=== PATIENT | male | born 1930 | race Caucasian/White ===

== ENCOUNTER 2017-12-06 16:13 | Inpatient (IN) | payer OTHER ==
[~2017-12-06] VITALS: Ht 170.2 cm; Wt 79.4 kg
--- NOTE | ~2017-12-06 | HC ---
[facility] [place] [address] CONSULTATION Name: HECTOR ARIZMENDI Room #: 237-P [facility] IN .R.#: [id number] Admission: 12/06/17 Attend Phys: Michelle Richter MD Discharge: Date of : 32 Report #: [id number] THIS REPORT FOR: //name// CC: Michelle Richter REASON FOR CONSULTATION: Recurrent VT/VF. HISTORY OF PRESENT ILLNESS: The patient is an 87-year-old patient with a history of coronary artery disease status post bypass as well as AFib, peripheral vascular disease, hypertension, hyperlipidemia, prior bypass surgery of his leg who was admitted here after a prolonged hospitalization at [facility] for congestive heart failure and pneumonia. He was admitted here with progressive fatigue and weakness, nausea, vomiting, diarrhea. While on the fourth floor, the patient had a cardiac arrest, was transferred to the ICU. Started on IV amiodarone and had been on Levophed. He had a repeat echo showing decreased LV systolic function, no significant valvular abnormalities. Over the past 24 hours, he has had multiple runs of ventricular tachycardia, ventricular flutter and ventricular fibrillation that have been successfully terminated with external shocks. He is on continuous IV amiodarone and Levophed 18 mcg. He is currently intubated. REVIEW OF SYSTEMS: Unable to obtain. PAST MEDICAL HISTORY: As above. FAMILY HISTORY: Significant for cardiomyopathy. SOCIAL HISTORY: He quit smoking. ALLERGIES: None. MEDICATIONS: Have been reviewed and include IV amiodarone, Zosyn, Levophed and sedatives. PHYSICAL EXAMINATION: VITAL SIGNS: Temperature is 37.1, pulse 93, respiration 16, blood pressure 103/57, sats 100%. GENERAL: The patient is intubated and sedated having just been shocked prior to me walking in the room. My initial evaluation of him was around 9:00 a.m. CARDIOVASCULAR: Regular rate and rhythm. LUNGS: Clear anteriorly. ABDOMEN: Soft, nontender and nondistended. EXTREMITIES: There is no clubbing, cyanosis, edema. NEUROLOGIC: Cranial nerves unable to assess. LABORATORY DATA: White count 19.7, hemoglobin 12, platelets 107. Blood gas pH is 7.2, pCO2 46, pO2 82. Coags: INR is 1.1. Chemistries: Sodium is 139, [facility] [address] [place] [address] CONSULTATION Name: HECTOR ARIZMENDI Room #: 237-P [facility]#: [id number] Admission: 12/06/17 Attend Phys: Michelle Richter MD Discharge: Date of : 32 Report #: [id number] potassium 3.6, chloride 109, bicarbonate 20, BUN 44, creatinine 2.3, glucose 137. A 12-lead EKG performed right after his cardioversion shows an accelerated junctional rhythm with a right bundle branch block. There are no ischemic changes. ASSESSMENT AND PLAN: 1. Refractory ventricular tachycardia and ventricular fibrillation. 2. Acute systolic heart failure. 3. Ischemic cardiomyopathy. 4. Coronary artery disease. 5. Respiratory failure. 6. Acute on chronic renal insufficiency. 7. Possible sepsis. 8. Leukocytosis. In summary, the patient is an 87-year-old with history of coronary artery disease with recurrent VT, V-fib despite amiodarone therapy. The etiology of his arrhythmias is not entirely clear, but I would suspect there is some underlying ischemia versus an advanced cardiomyopathy as the cause. It also could be due to his advanced age. At this time, I have recommended continuing with high dose IV amiodarone to suppress his ventricular arrhythmias and continue with a defibrillation as needed. I discussed with the family that the patient is very sick and that there will likely be a poor outcome at this point. I discussed options including aggressive management as we are currently doing versus de-escalation of care, which could include no more I cardioversions for VF as well as consideration of comfort measures. At this point, all 3 sons would like to continue with aggressive management of the patient. We will therefore continue to follow. I recommend continuing amiodarone and optimizing electrolytes. Given his tenuous hemodynamics and arrhythmias, I do not think he is a candidate for cardiac catheterization. <ELECTRONICALLY SIGNED> By: Mario Alberto Juárez MD 12/16/17 1407 1428 1854 Mario Alberto Juárez MD /nt
--- NOTE | ~2017-12-06 | EKG ---
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 : 1930 Requested By: Kevin Ruano Order Number: [id number] MD: Kevin Ruano Measurements Intervals [place] Rate: 74 P: -73 [place]: 270 QRS: -118 QRSD: 189 T: 108 QT: 515 QTc: 572 Interpretive Statements Sinus or ectopic atrial rhythm Prolonged [place] interval Right bundle branch block Compared to ECG 12/07/2017 06:51:56 Sinus rhythm has replaced atrial flutter Electronically Signed On 12-08-2017 10:38:38 CDT by Kevin Ruano [email or web address] <ELECTRONICALLY SIGNED> By: Kevin Ruano MD, [facility] 12/08/17 1038 0649 0649 Kevin Ruano MD, [facility] /EPI
--- NOTE | ~2017-12-06 | EKG ---
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: kristina : 1930 Requested By: Keanu Goldberg Order Number: [id number] MD: Kevin Ruano Measurements Intervals [place] Rate: 99 P: 213 CT: 187 QRS: -137 QRSD: 187 T: 52 QT: 479 QTc: 615 Interpretive Statements Sinus or ectopic atrial rhythm Right bundle branch block Compared to ECG 12/08/2017 15:53:11 No significant change was found Electronically Signed On 12-09-2017 13:26:28 CDT by Kevin Ruano [email or web address] <ELECTRONICALLY SIGNED> By: Kevin Ruano MD, [facility] 12/09/17 1326 22 22 Kevin Ruano MD, [facility] /EPI
--- NOTE | ~2017-12-06 | 2DMMODE ---
[facility] [address] [place] [address] 2 D/M-MODE ECHOCARDIOGRAM Name: HECTOR ARIZMENDI Room #: 237-P [facility] IN ..#: [id number] Admission: 12/06/17 Attend Phys: Michelle Richter MD Discharge: Date of : 32 Date of Service: 12/07/17 1029 Report #: [id number] THIS REPORT FOR: //name// APPROVED REPORT Study performed: 12/07/2017 08:36:33 EXAM: Comprehensive 2D, Doppler, and color-flow Echocardiogram Patient Location: Bedside Room #: Count includes the [facility] Status: routine BSA: 1.96 HR: 77 bpm BP: 165/132 mmHg Rhythm: NSR/Irregular Other Information Study Quality: Good Technically limited study due to inability to position patient, patient on ventilator. Indications Post Code 2D Dimensions RVDd: 35.38 mm LVEF(%): 57.17 (>50%) IVSd: 13.34 (7-11mm) LVOT Diam: 22.35 (18-24mm) LVDd: 43.56 mm PWd: 12.80 (7-11mm) Ascending Ao: 34.82 (22-36mm) LVDs: 30.58 (25-40mm) Aortic Root: 38.13 mm De León's LVEF: 57.17 % Volumes Left Atrial Volume (Systole) Single Plane 4CH: 83.58 mL Single Plane 2CH: 119.03 mL LA ESV Index: 55.00 mL/m2 Aortic Valve AoV Peak Jose.: 1.43 m/s AO Peak Gr.: 8.22 mmHg LVOT Max P.21 mmHg LVOT Max V: 0.74 m/s MARIA R Vmax: 2.03 cm2 Mitral Valve [facility] [employer] [place] [address] 2 D/M-MODE ECHOCARDIOGRAM Name: HECTOR ARIZMENDI Room #: 237-P [facility] IN ..#: [id number] Admission: 12/06/17 Attend Phys: Michelle Richter MD Discharge: Date of : 32 Date of Service: 12/07/17 1029 Report #: [id number] E/A Ratio: 2.7 MV Decel. Time: 181.73 ms MV E Max Jose.: 0.91 m/s MV A Jose.: 0.34 m/s MV PHT: 52.70 ms IVRT: 83.04 ms Pulmonary Valve PV Peak Jose.: 0.95 m/s PV Peak Gr.: 3.62 mmHg Pulmonary Vein P Vein S: 0.61 m/s P Vein A: 0.31 m/s P Vein D: 0.24 m/s P Vein A Dur.: 64.6 msec P Vein S/D Ratio: 2.54 Tricuspid Valve TR Peak Jose.: 2.91 m/s RAP Estimate: 15.00 mmHg TR Peak Gr.: 33.90 mmHg PA Pressure: 49.00 mmHg Left Ventricle The left ventricle is normal size. Mild concentric left ventricular hypertrophy. The left ventricular systolic function was mildly depressed. In the presence of a tachycardia, LV function was severely reduced. LVEF 45%. The diastolic function is abnormal. Right Ventricle The right ventricle is normal size. Right ventricle is mildly hypokinetic. Atria Left atrium is severely dilated. Right atrium is dilated. Aortic Valve The aortic valve is mildly calcified, trileaflet Trace aortic regurgitation. There is no aortic valvular stenosis. Mitral Valve Mild mitral annular calcification Mild mitral regurgitation. No evidence of mitral valve stenosis. Tricuspid Valve The tricuspid valve is normal in structure. Mild tricuspid regurgitation. Estimated PAP 50 mmHg. Pulmonic Valve [address] [address] 2 D/M-MODE ECHOCARDIOGRAM Name: HECTOR ARIZMENDI Room #: 237-P [facility] IN [facility]#: [id number] Admission: 12/06/17 Attend Phys: Michelle Richter MD Discharge: Date of : 32 Date of Service: 12/07/17 1029 Report #: [id number] The pulmonary valve is normal in structure. Trace pulmonic regurgitation. Great Vessels Aortic root is borderline dilated. The ascending aorta is normal in size. IVC is dilated and collapses <50% with inspiration. Pericardium There is no pericardial effusion. <Conclusion> The left ventricular systolic function was mildly depressed. In the presence of a tachycardia, LV function was severely reduced. LVEF 45%. Both atria are severely dilated. The aortic valve is mildly calcified, trileaflet. Trace aortic regurgitation, no stenosis. Mild mitral annular calcification. Mild-moderate mitral regurgitation. Mild tricuspid regurgitation. Estimated pulmonary artery pressure of 50 mmHg. There is no pericardial effusion. <ELECTRONICALLY SIGNED> By: Kevin Ruano MD, FACC 12/07/17 1029 1029 1029 Kevin Ruano MD, FACC /INF
--- NOTE | ~2017-12-06 | HC ---
[facility] [place] [address] CONSULTATION Name: HECTOR ARIZMENDI Room #: 202-P [facility] IN .R.#: [id number] Admission: 12/06/17 Attend Phys: Michelle Richter MD Discharge: 12/23/17 Date of : 32 Report #: [id number] THIS REPORT FOR: //name// CC: Michelle Richter DATE OF SERVICE: 12/19/2017 HISTORY OF PRESENT ILLNESS: The patient is an 87-year-old white male who was originally admitted on 12/06/2017 with vomiting, diarrhea. He was noted to have an unresponsive episode, had recurrent V-tach, code blue on 12/08/2017. He was intubated, mechanically ventilated, shocked, underwent CPR. He was treated in the Intensive Care Unit. He was noted to have acute renal insufficiency. He was initially unresponsive, seen by Neurology, diagnosed with encephalopathy, both hypoxic as well as metabolic. Noted to have C. diff. He does have a colorectal wall thickening on CT and the plan is for potential colonoscopy at a later date when further medically stabilized. He has been transferred [facility], is much more alert, although with significant cognitive deficits and we are seeing him in rehabilitation medicine consultation. PAST MEDICAL HISTORY: Includes cardiomyopathy, hypertension, atrial fibrillation. He has had a prior common bile duct stone. History of severe obstructive sleep apnea. Also includes a recent hospitalization at [facility] for a community-acquired pneumonia and had been on 1 liter nasal prong O2 since that hospitalization based on nocturnal oximetry. He does have the noted severe obstructive sleep apnea per sleep study and had until recently refused CPAP. PAST SURGICAL HISTORY: Includes a prior right total knee replacement. HABITS: Former smoker, alcohol, special occasions. ALLERGIES: No known drug allergies. SOCIAL HISTORY: The patient and had recently moved from their house in with their daughter and son-in-law. This is a house with 2 steps in and there is a stair glide there. The son and [id number] both work during the day and the patient is there with his . He premorbidly did not utilize gait aids, although he would use the stair glide with his history of arthritis. His uses a cane on occasion. REVIEW OF SYSTEMS: Did not offer any current complaints of chest pain, shortness of breath, or abdominal discomfort. Complains of being overall weak. PHYSICAL EXAMINATION: GENERAL: This is a pleasant 87-year-old white male in no obvious distress. VITAL SIGNS: Last recorded temperature 98.2, pulse 69, respirations 20, [place] [address] CONSULTATION Name: HECTOR ARIZMENDI Room #: 202-P [facility] IN M.R.#: [id number] Admission: 12/06/17 Attend Phys: Michelle Richter MD Discharge: 12/23/17 Date of : 32 Report #: [id number] pressure 107/47. NEUROLOGIC: He has decreased short term memory. Follows basic commands without difficulty, is certainly pleasant and engaging. Facies appeared symmetric. EXTREMITIES: He has functional range of motion of both upper extremities. Strength is grade 3+ to 4-/5. Lower extremities, no focal calf swelling, functional range of motion with strength grade 3+ to 4-/5. DTRs are trace to 1. He is max assist with sit to stand. He does have a posterior lean. Speech therapy notes moderate cognitive deficits. In OT, he stood from a recliner with max assist. Bathing at bedside was noted to be mod assist. ASSESSMENT: An 87-year-old white male previously independent living in the community, admitted with the following problem list: 1. Hypoxic and metabolic encephalopathy. 2. Recurrent ventricular tachycardia with cardiac arrest. 3. Acute respiratory failure, which has resolved, still on nasal prong O2; however, at 2 liters. 4. Acute kidney injury, which is improved. 5. Sepsis. 6. Viral gastroenteritis. 7. Hypotension. 8. Aspiration pneumonia for which he was treated with IV Rocephin. 9. Clostridium difficile colitis. 10. Chronic kidney disease, stage III. 11. Circumferential rectal wall thickening on CT, consider colonoscopy at a later date. 12. Chronic intermittent atrial fibrillation. 13. Coronary artery disease with remote coronary artery bypass graft, peripheral vascular disease with history of a left lower extremity revascularization. 14. Past history of deep vein thrombosis. 15. Severe obstructive sleep apnea. 16. Elevated liver function tests, did have a common bile duct stone last year. PLAN: The patient would be a candidate for an acute in-hospital inpatient rehabilitation stay. This would allow the multiple procurement consultant physicians to continue following with him while he undergoes rehabilitation therapies to maximize his functional independence, so he can return back to the home setting. He appears motivated and insurance precertification issues will be checked on for an acute in-hospital inpatient rehabilitation stay. <ELECTRONICALLY SIGNED> By: Alfa Patel MD 12/28/17 1504 1226 1259 Alfa Patel MD /[facility]
--- NOTE | ~2017-12-06 | EEG ---
[facility] [place] [address] ELECTROENCEPHALOGRAM Name: HECTOR ARIZMENDI Room #: 202-P [facility] IN M.R.#: [id number] Admission: 12/06/17 Attend Phys: Michelle Richter MD Discharge: Date of : 32 Report #: [id number] THIS REPORT FOR: //name// CC: Michelle Richter DATE OF SERVICE: 12/07/2017 This patient is being evaluated for altered mental status. EEG was done by placing the electrodes by standard 10-20 system of electrode placement. Both referential and sequential montages were used for recording. Background activity in this patient's EEG goes up to about 7 Hz and 20 microvolt. Photic stimulation is unremarkable. IMPRESSION: This patient's EEG is only moderately abnormal at the moment, which would be consistent with the diagnosis of encephalopathy; however, the finding is nonspecific and can occur in multiple other etiology. The patient will require serial EEG to further prognosticate him. Thank you very much for this referral. <ELECTRONICALLY SIGNED> By: Clifton Chiu MD 12/20/17 1650 193 44 Clifton Chiu MD /nt
--- NOTE | ~2017-12-06 | EKG ---
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 Director: DAYDAY : 1930 Requested By: Kevin Ruano Order Number: [id number] MD: Kevin Ruano Measurements Intervals [place] Rate: 122 P: [place]: QRS: 207 QRSD: 188 T: 48 QT: 418 QTc: 596 Interpretive Statements Possible atrial fibrillation Right bundle-branch block Compared to ECG 12/08/2017 15:53:11 Possible Atrial fibrillation has replaced sinus rhythm Electronically Signed On 12-09-2017 13:31:00 CDT by Kevin Ruano [email or web address] <ELECTRONICALLY SIGNED> By: Kevin Ruano MD, [facility] 12/09/17 1331 7 7 Kevin Ruano MD, [facility] /EPI
--- NOTE | ~2017-12-06 | EKG ---
[address] [address] ELECTROCARDIOGRAM REPORT Name: HECTOR ARIZMENDI Room #: 237-[facility]#: [id number] Admission: 12/06/17 Attend Phys: Michelle Richter MD Discharge: Date of : 32 Report #: [id number] THIS REPORT FOR: //name// [facility] Test Date: 2017-12-07 Test Time: 06:51:56 Pat Name: HECTOR ARIZMENDI Department: Room: 237 P Gender: M Catalyst Supervisor: DAYDAY : 1930 Requested By: Michelle Richter Order Number: [id number] MD: Mario Alberto Juárez Measurements Intervals [place] Rate: 106 P: [place]: QRS: -121 QRSD: 202 T: 63 QT: 472 QTc: 627 Interpretive Statements Atrial flutter RBBB Compared to ECG 05/02/2003 06:32:25 Electronically Signed On 12-07-2017 8:03:09 CDT by Mario Alberto Juárez [email or web address] <ELECTRONICALLY SIGNED> By: Mario Alberto Juárez MD 12/07/17 0803 0 Mario Alberto Juárez MD /ATILIO
--- NOTE | ~2017-12-06 | EKG ---
[address] [address] ELECTROCARDIOGRAM REPORT Name: HECTOR ARIZMENDI Room #: 237-P [facility]#: [id number] Admission: 12/06/17 Attend Phys: Michelle Richter MD Discharge: Date of : 32 Report #: [id number] THIS REPORT FOR: //name// [facility] ED Test Date: 2017-12-06 Test Time: 17:07:32 Pat Name: HECTOR ARIZMENDI Department: Room: [facility] Gender: M Agricultural Education Professor: ANA MARÍA : 1930 Requested By: Juan R Barakat Order Number: [id number] MD: Mario Alberto Juárez Measurements Intervals [place] Rate: 102 P: [place]: QRS: -162 QRSD: 183 T: 26 QT: 438 QTc: 571 Interpretive Statements Atrial flutter RBBB and LPFB Compared to ECG 05/02/2003 06:32:25 Left posterior fascicular block now present Right bundle-branch block now present Sinus rhythm no longer present Myocardial infarct finding no longer present Electronically Signed On 12-07-2017 7:56:14 CDT by Mario Alberto Juárez [email or web address] <ELECTRONICALLY SIGNED> By: Mario Alberto Juárez MD 12/07/17 0756 170 170 Mario Alberto Juárez MD /EPI
--- NOTE | ~2017-12-06 | EKG ---
[address] [address] ELECTROCARDIOGRAM REPORT Name: HECTOR ARIZMENDI Room #: 202-P ADM IN M.R.#: [id number] Admission: 12/06/17 Attend Phys: Michelle Richter MD Discharge: Date of : 32 Report #: [id number] THIS REPORT FOR: //name// [facility] Test Date: 2017-12-17 Test Time: 10:30:52 Pat Name: HECTOR ARIZMENDI Department: Room: 202 P Gender: M Machine Inker: SARAH : 1930 Requested By: Mario Alberto Juárez Order Number: [id number] MD: Mario Alberto Juárez Measurements Intervals [place] Rate: 84 P: CT: QRS: -172 QRSD: 188 T: 60 QT: 467 QTc: 553 Interpretive Statements Atrial fibrillation Right bundle branch block Compared to ECG 12/09/2017 08:38:18 No significant changes Electronically Signed On 12-17-2017 12:21:41 CDT by Mario Alberto Juárez [email or web address] <ELECTRONICALLY SIGNED> By: Mario Alberto Juárez MD 12/17/17 1221 1030 1030 Mario Alberto Juárez MD /ATILIO
--- NOTE | ~2017-12-06 | EKG ---
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 : 1930 Requested By: Michelle Richter Order Number: [id number] MD: Mario Alberto Juárez Measurements Intervals [place] Rate: 106 P: [place]: QRS: -126 QRSD: 202 T: 64 QT: 482 QTc: 641 Interpretive Statements Atrial flutter Right bundle branch block Baseline wander in lead(s) II,aVR Compared to ECG 12/06/2017 17:07:32 Electronically Signed On 12-07-2017 8:02:49 CDT by Mario Alberto Juárez [email or web address] <ELECTRONICALLY SIGNED> By: Mario lAberto Juárez MD 12/07/17 0802 0651 0651 Mario Alberto Juárez MD /[facility]
--- NOTE | ~2017-12-06 | HC ---
[facility] [place] [address] CONSULTATION Name: HECTOR ARIZMENDI Room #: 237-P [facility] IN .R.#: [id number] Admission: 12/06/17 Attend Phys: Michelle Richter MD Discharge: Date of : 32 Report #: [id number] THIS REPORT FOR: //name// CC: Michelle Richter MD PRIMARY CARE PHYSICIAN: Dr. Michelle Richter. REASON FOR CONSULTATION: Cardiac arrest. HISTORY OF PRESENT ILLNESS: The patient is an 87-year-old white male who was admitted on 12/06 with dehydration. He had complaints of vomiting and diarrhea. Overnight, the patient was found to be in ventricular tachycardia and became unresponsive. The patient was resuscitated and transferred to ICU. A pulmonary consultation was requested. The patient has known coronary artery disease. He has also been known to have severe NIA several years ago. He is followed by Dr. Green. According to the sons, he has not been tolerant to the use of CPAP. He has been advised to sleep with a sleep on the side. Son notes, the patient has had problems with daytime fatigue and sleepiness chronically. The patient was hospitalized a few weeks ago at [facility] for pneumonia. He was doing fairly well until yesterday when he was seen in Dr. Richter's office where he was felt to be fatigued. He was admitted for dehydration. The patient had trouble with vomiting and diarrhea for several hours. He was admitted to telemetry. In the middle of night, the patient was found to be tachycardic and became unresponsive. Code blue was called. CPR was given. He was defibrillated, intubated. While in ICU, patient again developed ventricular tachycardia. The code blue was again called. Presently he has stabilized. Cardiology has been consulted. His vital signs are stable. He is not responsive at this time, but on sedation. PAST MEDICAL HISTORY: Notable for coronary artery disease with coronary bypass surgery several years ago; hypertension; ischemic cardiomyopathy; apparent severe NIA, intolerant to use of CPAP; osteoarthritis; atrial fibrillation. PAST SURGICAL HISTORY: As mentioned above including tonsillectomy, herniorrhaphy x 3, right knee arthroscopic surgery. ALLERGIES: None to medications. HOME MEDICATIONS: List reviewed. This includes Coumadin, alendronate, Coreg, [address] [address] CONSULTATION Name: HECTOR ARIZMENDI Room #: 237-P [facility] IN ..#: [id number] Admission: 12/06/17 Attend Phys: Michelle Richter MD Discharge: Date of : 32 Report #: [id number] Flonase, mirabegron, Ditropan, Zocor, Lasix, amiodarone, aspirin, Claritin. FAMILY HISTORY: Noncontributory. SOCIAL HISTORY: The patient is a lifetime nonsmoker. He drinks occasionally. He is . REVIEW OF SYSTEMS: Deferred as the patient is intubated. PHYSICAL EXAMINATION: GENERAL: He is unresponsive at this time. VITAL SIGNS: Temperature is 97.6 degrees Fahrenheit, pulse is 84, respiratory rate 17, blood pressure 105/52 mmHg, saturation 97%. Overnight blood pressure has been as low as 64 mmHg systolic. HEENT: Normocephalic and atraumatic. He is orally intubated. NECK: Supple, without lymphadenopathy or thyromegaly. CHEST: Breath sounds are clear with no rales or wheezes. CARDIOVASCULAR: Normal S1, S2. There are no murmurs or gallops. There is no JVD, no carotid bruit. Pulses are 2+/4+ bilaterally. ABDOMEN: Soft, nontender, no organomegaly or masses felt. GENITOURINARY: Deferred. RECTAL: Deferred. EXTREMITIES: No edema, cyanosis or clubbing. NEUROLOGIC: Deferred to Neurology. LABORATORY DATA: A chest x-ray shows small lung volumes, ET tube is 2 cm above the luba. Cardiomegaly is present. Otherwise, no obvious infiltrates or effusion seen. Echocardiogram performed earlier today shows pulmonary pressure around 50, yetw-oq-kjrwzzzc mitral regurgitation, trace aortic regurgitation, both atria about severely dilated, ejection fraction 45%, LV function is severely reduced. Lactic acid 5.2. Troponin less than 0.04. CT abdomen and pelvis performed on admission shows small bilateral pleural effusion, mild bibasilar atelectasis, possible diverticulitis, circumferential thickening of the wall of the rectum. Sodium 145, potassium 3.9, chloride 112, CO2 22, BUN is 37, creatinine 1.9. WBC 13,600; no bandemia; hemoglobin 15.1; platelets are normal. Albumin 2.7. Arterial blood gas revealed pH 7.30, pCO2 of 33, pO2 77 and FiO2 100%. IMPRESSION AND PLAN: 1. Witnessed cardiac arrest in this 87-year-old white male who was found to be in ventricular fibrillation. He was coded twice. 2. Coronary artery disease with ischemic cardiomyopathy, ejection fraction 45%. 3. Mild valvular heart disease with vchr-lv-tcdmuycz mitral regurgitation. 4. Acute hypoxic respiratory failure due to above. Gaseous exchange is stable, though A-a gradient is increased. This should stabilize over time. Chest x-ray again is unremarkable. Pulmonary embolus is felt to be unlikely given the [facility] [address] [place] [address] CONSULTATION Name: HECTOR ARIZMENDI Room #: 237-P [facility] IN [facility]#: [id number] Admission: 12/06/17 Attend Phys: Michelle Richter MD Discharge: Date of : 32 Report #: [id number] patient is on anticoagulation on admission. 5. Acute kidney injury with creatinine of 1.2 with development of metabolic acidosis due to cardiac arrest. 6. Leukocytosis, likely reactive due to cardiac arrest. Doubt infectious process at this time. 7. Moderately severe protein calorie malnutrition with albumin of 2.7. 8. 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 9. History of obstructive sleep apnea, felt to be severe, intolerant to the use of CPAP. These may have been the etiology for his cardiac dysrhythmias. 10. Recent nausea, vomiting, possible gastroenteritis, on chronic anticoagulation due to history of atrial fibrillation/flutter. RECOMMENDATION: We will continue mechanical ventilation, wean O2 for saturation 90%. Follow up chest x-ray. We will also need to monitor metabolic acidosis along with renal failure closely. Urine output has been good so far. If acidosis worsens, he may benefit from bicarbonate therapy. We will need to monitor neurologic status closely. He is currently undergoing EEG monitoring. Treatment of sleep apnea will need to be addressed, pending recovery from his current event. Thank you for this consultation. <ELECTRONICALLY SIGNED> By: Pantera Yoon MD 12/07/17 1608 1230 1442 MD francine Haq
--- NOTE | ~2017-12-06 | HC ---
[facility] [place] [address] CONSULTATION Name: HECTOR ARIZMENDI Room #: 202-P [facility] IN M.R.#: [id number] Admission: 12/06/17 Attend Phys: Michelle Richter MD Discharge: Date of : 32 Report #: [id number] THIS REPORT FOR: //name// CC: Michelle Richter REASON FOR CONSULTATION: Acute kidney injury. HISTORY OF PRESENT ILLNESS: The patient is not able to provide me with the history. He is currently intubated. He is an 87-year-old who presented with flu-like symptoms initially back on 12/06/2017. He reported to shortness of breath, fatigue, nausea, diarrhea. He was admitted for further evaluation and management based on his symptoms. He is known to have coronary artery disease, status post CABG about 15 years ago. He was recently hospitalized at [facility] for similar symptoms. He has numerous medical problems including cardiomyopathy, AFib, hypertension. On presentation, his creatinine was around 2.2. Unfortunately, his condition deteriorated and he has had multiple cardiac arrests on the with V-tach and pulseless electrical activity. He required some pressors and was hypotensive. Cardiology is following. Because of the worsening in the creatinine I am being asked to evaluate his acute kidney injury. PAST MEDICAL HISTORY: Numerous and includes the followin. Hypertension. 2. Cardiomyopathy. 3. Coronary artery disease, status post coronary artery bypass graft. 4. Severe obstructive sleep apnea. 5. Atrial fibrillation. PAST SURGICAL HISTORY: 1. Tonsillectomy. 2. Coronary artery bypass graft. 3. Herniorrhaphy. ALLERGIES: No known drug allergies. SOCIAL HISTORY: Lifetime nonsmoker. No drug or alcohol abuse. He is . HOME MEDICATIONS: Include warfarin, amiodarone, carvedilol, aspirin, furosemide. REVIEW OF SYSTEMS: Unobtainable given the patient's current condition and intubation status. PHYSICAL EXAMINATION: GENERAL: The patient is currently intubated. VITAL SIGNS: Blood pressure is 115/64, pulse rate is 81. HEAD AND NECK: ET tube present. [facility] [address] [place] [address] CONSULTATION Name: HECTOR ARIZMENDI Room #: 202-P [facility] IN M.R.#: [id number] Admission: 12/06/17 Attend Phys: Michelle Richter MD Discharge: Date of : 32 Report #: [id number] CHEST: Very limited air entry bilaterally. CARDIOVASCULAR: Distant with no rub detected. ABDOMEN: Soft, nontender. LOWER EXTREMITIES: No edema. LABORATORY DATA: Reviewed. Most recent blood gas revealed a pH of 7.2. White blood cell count 19,000, platelets 99. BUN is 57, creatinine is 3.3, potassium is 4.1. Chest x-ray reviewed, he does have mild right-sided basal infiltrate. ASSESSMENT, IMPRESSION AND PLAN: 1. Acute kidney injury. 2. Chronic kidney disease. 2. Recurrent ventricular fibrillation. 3. Status post cardiopulmonary arrest. 4. Aspiration pneumonitis. 5. History of coronary artery disease. This is a rather grim prognosis. He has very significant acidosis. He is not making urine. Discussed with his son and . Given the fact that he has had at least 4-5 cardiopulmonary arrest events in the last 24 hours, I am leaning towards palliative and comfort care. I will try high dose Lasix with him, his acute kidney injury is well explained by the repeated episodes of hypoperfusion he had with his cardiopulmonary arrest. He does have an evidence of chronic kidney disease. Primary team is addressing his possible infection. Cardiology is following for his cardiac issues. Discussed with his son at bedside. He seemed very receptive of palliative and comfort care. At this point, I will continue to evaluate. If he responds to Lasix, we will place on a scheduled dose furosemide. Otherwise, we should pursue palliative and comfort care. <ELECTRONICALLY SIGNED> By: Ashu Michaels MD 12/21/17 1926 [id number] Ashu Michaels MD /nt
--- NOTE | ~2017-12-06 | HC ---
[facility] [place] [address] CONSULTATION Name: HECTOR ARIZMENDI Room #: 202-P [facility] IN .R.#: [id number] Admission: 12/06/17 Attend Phys: Michelle Richter MD Discharge: Date of : 32 Report #: [id number] THIS REPORT FOR: //name// CC: Michelle Richter DATE OF SERVICE: 12/07/2017 HISTORY OF PRESENT ILLNESS: This is an 87-year-old male patient who is not able to provide any history at all. None of the family member is available, but we will try to contact them. I reviewed this patient's records and looks like this patient had code blue called twice. He was admitted with flu-like symptoms, but since then this patient had 2 code blue events. It looks like he had some vomiting and diarrhea and subsequently had the code blue. REVIEW OF SYSTEMS: Indicate he was recently hospitalized to [facility]. He was having some fatigue, some pleural effusion, he apparently has a history of sleep apnea, he mainly is managed staying himself with sleeping on the side rather than CPAP. Records indicate he has a history of hernia repair, right knee arthroscopy, hypertension, cardiomyopathy, heart burn, AFib. This was his relevant 14-point review of systems. PAST MEDICAL HISTORY: Positive for what looks like dehydration. FAMILY HISTORY: Unremarkable. SOCIAL HISTORY: He used to smoke and he drinks alcohol only on special occasions. The patient is on propofol, so neurological examination is difficult. He is barely responsive where he has minor response to the painful stimuli. His pupil does appear to be reactive, but very sluggishly. No other response could be obtained. He is intubated, he is on vent. He is a reasonably well-developed individual. His blood pressure is 93/59, respiration is 17, and pulse is 97. LABORATORY DATA: Indicate a white count of 13.6, platelet is 130. GFR is 34. He is stable from a cardiac perspective now, he is intubated and is on vent. IMPRESSION: Cardiac arrest. We will evaluate further to look for hypoxic encephalopathy in this patient. I do not believe this patient is stable enough to do any imaging study like CAT scan at the moment. We will get it done when he stabilized the next day or so. In the meantime, we will get an EEG done to see how it looks. It will serve as a baseline and then we will compare with other EEGs over a period of [place] [address] CONSULTATION Name: HECTOR ARIZMENDI Room #: 202-P [facility] IN ..#: [id number] Admission: 12/06/17 Attend Phys: Michelle Richter MD Discharge: Date of : 32 Report #: [id number] Thank you very much for this referral. We will follow this patient along with you. <ELECTRONICALLY SIGNED> By: Clifton Chiu MD 12/20/17 1648 0907 1145 MD francine Trotter
--- NOTE | ~2017-12-06 | 2DMMODE ---
[facility] [address] 2 D/M-MODE ECHOCARDIOGRAM Name: HECTOR ARIZMENDI Room #: 237-P [facility] IN ..#: [id number] Admission: 12/06/17 Attend Phys: Michelle Richter MD Discharge: Date of : 32 Date of Service: 12/10/17 1212 Report #: [id number] THIS REPORT FOR: //name// APPROVED REPORT Study performed: 12/10/2017 08:38:45 EXAM: Limited 2D, Doppler, and color-flow Echocardiogram Patient Location: ICU Room #: [facility] Status: on-call BSA: 1.86 HR: 93 bpm BP: 115/63 mmHg Other Information Study Quality: Good/patient on vent in ICU. Indications Arrhythmia. Status post cardiac arrest. Hx: CABG, AFIB, CM (Complete echo done 12/07/17) 2D Dimensions LVEF(%): 37.07 (>50%) IVSd: 10.62 (7-11mm) LVDd: 57.36 mm PWd: 10.14 (7-11mm) LVDs: 46.96 (25-40mm) De León's LVEF: 37.07 % Aortic Valve AoV Peak Jose.: 1.14 m/s AO Peak Gr.: 5.19 mmHg Tricuspid Valve TR Peak Jose.: 2.92 m/s RAP Estimate: 10.00 mmHg TR Peak Gr.: 34.03 mmHg PA Pressure: 44.00 mmHg Left Ventricle Left ventricle is at the upper limits of normal. Left ventricular systolic function is severely decreased. LVEF is 25-30%. Right Ventricle Right ventricle is dilated. Right ventricle is severely hypokinetic. [facility] [address] [place] [address] 2 D/M-MODE ECHOCARDIOGRAM Name: HECTOR ARIZMENDI Room #: 237-P [facility] IN [facility]#: [id number] Admission: 12/06/17 Attend Phys: Michelle Richter MD Discharge: Date of : 32 Date of Service: 12/10/17 1212 Report #: [id number] Atria Left atrium is severely dilated. Right atrium is severely dilated. Aortic Valve The Aortic valve is sclerotic. Trace aortic regurgitation. There is no aortic valvular stenosis. Mitral Valve Mitral valve leaflets are thickened. Mild mitral annular calcification. Moderate mitral regurgitation. Tricuspid Valve The tricuspid valve is normal in structure. Mild to moderate tricuspid regurgitation. Estimated PAP is 45mmHg. Great Vessels IVC is dilated and collapses <50% with inspiration. Pericardium There is no pericardial effusion. <Conclusion> Left ventricle is at the upper limits of normal. Left ventricular systolic function is severely decreased. LVEF is 25-30%. Right ventricle is dilated. Right ventricle is severely hypokinetic. Left atrium is severely dilated. Right atrium is severely dilated. The Aortic valve is sclerotic. Trace aortic regurgitation. There is no aortic valvular stenosis. Mitral valve leaflets are thickened. Mild mitral annular calcification. Moderate mitral regurgitation. Mild to moderate tricuspid regurgitation. Estimated PAP is 45mmHg. IVC is dilated and collapses <50% with inspiration. There is no pericardial effusion. <ELECTRONICALLY SIGNED> By: Erwin Curry MD, FACC 12/10/17 121 11 11 Erwin Curry MD, FACC /INF
--- NOTE | ~2017-12-06 | EKG ---
[address] [place] [address] ELECTROCARDIOGRAM REPORT Name: HECTOR ARIZMENDI Room #: 237-P ADM IN M.R.#: [id number] Admission: 12/06/17 Attend Phys: Michelle Richter MD Discharge: Date of : 32 Report #: [id number] THIS REPORT FOR: //name// [facility] Test Date: 2017-12-08 Test Time: 22:20:18 Pat Name: HECTOR ARIZMENDI Department: Room: 237 P Gender: M Can Dryer: elvi : 1930 Requested By: Sagrario Hooker Order Number: [id number] MD: Kevin Ruano Measurements Intervals [place] Rate: 87 P: 56 VT: 347 QRS: -141 QRSD: 188 T: 69 QT: 514 QTc: 619 Interpretive Statements Sinus rhythm with first-degree AV block Occasional atrial premature complexes Prolonged VT interval Right bundle branch block Compared to ECG 12/08/2017 15:53:11 Atrial premature complexes are now present Electronically Signed On 12-09-2017 13:24:07 CDT by Kevin Ruano [email or web address] <ELECTRONICALLY SIGNED> By: Kevin Ruano MD, [facility] 12/09/17 1324 2220 2220 Kevin Ruano MD, [facility] /EPI
--- NOTE | ~2017-12-06 | EKG ---
[address] [address] ELECTROCARDIOGRAM REPORT Name: HECTOR ARIZMENDI Room #: 237-P ADM IN M.R.#: [id number] Admission: 12/06/17 Attend Phys: Michelle Richter MD Discharge: Date of : 32 Report #: [id number] THIS REPORT FOR: //name// [facility] Test Date: 2017-12-08 Test Time: 15:53:11 Pat Name: HECTOR ARIZMENDI Department: Room: 237 P Gender: M Web Operations Specialist: DANYELLE : 1930 Requested By: Michelle Richter Order Number: [id number] MD: Mario Alberto Juárez Measurements Intervals [place] Rate: 102 P: [place]: QRS: -133 QRSD: 185 T: 56 QT: 484 QTc: 631 Interpretive Statements Sinus or ectopic atrial tachycardia Right bundle branch block, old Compared to ECG 12/08/2017 06:49:21 Electronically Signed On 12-08-2017 16:15:23 CDT by Mario Alberto Juárez [email or web address] <ELECTRONICALLY SIGNED> By: Mario Alberto Juárez MD 12/08/17 1615 1553 1553 Mario Alberto Juárez MD /ATILIO
[~2017-12-06 16:13] MED LIST: ALENDRONATE SOD70 MG PO; ASPIRIN81 M2 PO; CARVEDILOL25 MG PO; CLARITIN10 MG PO; COUMADIN 5 MG TA5 M1 PO; DITROPAN XL15 MG PO; FLONASE 0.05%50 MCG; LASIX 20 MG TAB20 MG PO; MYRBETRIQ50 MG PO; NORCO 5-325 TA1 EACH PO; PACERONE 200 M200 M1 PO; ZOCOR20 MG PO
[2017-12-06 17:00] VITALS: BP 115/61; BP 163/76
[2017-12-06 17:36] LABS: ABSOLUTE NEUTROPHILS 13.2 thou/uL (1.4-8.2); BASOPHILS 0.4 % (0.0-2.0); EOSINOPHILS 1.1 % (0.0-3.0); HEMATOCRIT 41.2 % (42.0-52.0); HEMOGLOBIN 13.5 gm/dL (14.0-18.0); LYMPHOCYTES 0.6 % (24.0-44.0); MCH 31.1 pg (26.0-34.0); MCHC 32.7 g/dL (28.0-37.0); MCV 95.1 fL (80.0-100.0); MONOCYTES 2.2 % (1.0-8.0); PLATELET COUNT 127 thou/uL (150-400); POLYS 95.7 % (36.0-66.0); RBC 4.33 mil/uL (4.50-6.00); RDW 16.2 % (10.5-14.5); WBC 13.8 thou/uL (4.0-11.0)
[2017-12-06 17:48] LABS: ANION GAP 9 mmol/L (7-16); BUN 47 mg/dL (7-18); CALCIUM 8.5 mg/dL (8.5-10.1); CHLORIDE 110 mmol/L (98-107); CO2 28 mmol/L (21-32); CREATININE 2.2 mg/dL (0.7-1.3); GLUCOSE 108 mg/dL (74-106); POTASSIUM 3.7 mmol/L (3.5-5.1); SODIUM 147 mmol/L (136-145)
[2017-12-06 17:57] LABS: DIRECT BILIRUBIN 0.3 mg/dL (<0.1-0.3); LIPASE 319 U/L (73-393); SGOT 75 U/L (15-37); SGPT 221 U/L (30-65); TOTAL BILIRUBIN 2.9 mg/dL (<0.1-1.0); TOTAL PROTEIN 5.7 g/dL (6.4-8.2); TROPONIN-I < 0.04 ng/mL (<0.06)
[2017-12-06 19:12] LABS: URINE BILIRUBIN NEGATIVE (Negative); URINE BLOOD NEGATIVE (Negative); URINE CLARITY CLEAR; URINE COLOR YELLOW; URINE GLUCOSE-RANDOM* NEGATIVE (Negative); URINE KETONES TRACE (Negative); URINE LEUKOCYTES NEGATIVE (Negative); URINE NITRITE NEGATIVE (Negative); URINE PROTEIN (DIPSTICK) TRACE (Negative); URINE SPECIFIC GRAVITY 1.015 (1.005-1.035); URINE UROBILINOGEN 0.2 E.U./dl (0.2-1.0)
[2017-12-06 22:55] VITALS: BP 111/76
[2017-12-06 23:15] VITALS: BP 115/75
[2017-12-07] VITALS (89 sets, daily range): BP systolic 46–168; BP diastolic 15–132
[2017-12-07 05:40] LABS: HEMATOCRIT 47.4 % (42.0-52.0); HEMOGLOBIN 15.1 gm/dL (14.0-18.0); MCH 30.7 pg (26.0-34.0); MCHC 31.8 g/dL (28.0-37.0); MCV 96.6 fL (80.0-100.0); RBC 4.91 mil/uL (4.50-6.00); WBC 13.6 thou/uL (4.0-11.0)
[2017-12-07 05:53] LABS: ALBUMIN 2.7 g/dL (3.4-5.0); CALCIUM 7.8 mg/dL (8.5-10.1); CREATININE 1.9 mg/dL (0.7-1.3); POTASSIUM 3.9 mmol/L (3.5-5.1); TOTAL BILIRUBIN 2.2 mg/dL (<0.1-1.0); TOTAL PROTEIN 5.3 g/dL (6.4-8.2)
[2017-12-07 07:01] LABS: HCO3 16.3 mmol/L (22.0-26.0); PCO2 33.5 mmHg (35.0-45.0); PO2 77.6 mmHg (80.0-100.0); sO2 94.5 % (92.0-98.0)
[2017-12-07 07:02] LABS: pH 7.305 (7.360-7.450)
[2017-12-07 08:44] LABS: INR 1.1; PROTIME 11.3 Seconds (9.3-11.4)
[2017-12-07 12:49] LABS: CALCIUM 7.1 mg/dL (8.5-10.1); CREATININE 1.9 mg/dL (0.7-1.3)
[2017-12-07 12:50] LABS: HCO3 19.9 mmol/L (22.0-26.0); PCO2 33.2 mmHg (35.0-45.0); PO2 62.4 mmHg (80.0-100.0); pH 7.396 (7.360-7.450); sO2 92.1 % (92.0-98.0)
[2017-12-07 12:53] LABS: POTASSIUM 2.6 mmol/L (3.5-5.1)
[2017-12-08] VITALS (98 sets, daily range): BP systolic 36–136; BP diastolic 24–120
[2017-12-08 05:04] LABS: BE(vivo) -8.1 mmol/L (-2 to +3); HCO3 17.5 mmol/L (22.0-26.0); PCO2 36.8 mmHg (35.0-45.0); PO2 73.4 mmHg (80.0-100.0); sO2 93.4 % (92.0-98.0)
[2017-12-08 05:05] LABS: pH 7.296 (7.360-7.450)
[2017-12-08 05:11] LABS: HEMATOCRIT 41.3 % (42.0-52.0); HEMOGLOBIN 13.2 gm/dL (14.0-18.0); MCH 30.8 pg (26.0-34.0); MCV 96.1 fL (80.0-100.0); RBC 4.3 mil/uL (4.50-6.00); RDW 16.9 % (10.5-14.5); WBC 18.8 thou/uL (4.0-11.0)
[2017-12-08 05:17] LABS: CALCIUM 6.4 mg/dL (8.5-10.1); CREATININE 2.6 mg/dL (0.7-1.3); POTASSIUM 3.9 mmol/L (3.5-5.1)
[2017-12-08 15:54] LABS: BE(vivo) -7.6 mmol/L (-2 to +3); HCO3 17.1 mmol/L (22.0-26.0); PCO2 32.9 mmHg (35.0-45.0); PO2 63.8 mmHg (80.0-100.0); pH 7.334 (7.360-7.450); sO2 91.3 % (92.0-98.0)
[2017-12-08 16:16] LABS: HEMATOCRIT 40.8 % (42.0-52.0); HEMOGLOBIN 13.3 gm/dL (14.0-18.0); MCH 30.8 pg (26.0-34.0); MCHC 32.6 g/dL (28.0-37.0); MCV 94.6 fL (80.0-100.0); RBC 4.31 mil/uL (4.50-6.00); RDW 17.1 % (10.5-14.5); WBC 22.3 thou/uL (4.0-11.0)
[2017-12-08 16:24] LABS: CALCIUM 6.4 mg/dL (8.5-10.1); CREATININE 2.5 mg/dL (0.7-1.3); POTASSIUM 3.3 mmol/L (3.5-5.1)
[2017-12-08 16:33] LABS: TROPONIN-I 0.11 ng/mL (<0.06)
[2017-12-08 22:11] LABS: CALCIUM 6.3 mg/dL (8.5-10.1); CREATININE 2.4 mg/dL (0.7-1.3); POTASSIUM 3.4 mmol/L (3.5-5.1)
[2017-12-09] VITALS (91 sets, daily range): BP systolic 57–125; BP diastolic 38–93
[2017-12-09 03:54] LABS: BE(vivo) -9.1 mmol/L (-2 to +3); HCO3 16.4 mmol/L (22.0-26.0); PCO2 34.5 mmHg (35.0-45.0); PO2 76.2 mmHg (80.0-100.0)
[2017-12-09 03:55] LABS: pH 7.294 (7.360-7.450)
[2017-12-09 04:29] LABS: HEMATOCRIT 40.4 % (42.0-52.0); HEMOGLOBIN 12.9 gm/dL (14.0-18.0); MCH 30.7 pg (26.0-34.0); MCHC 32.1 g/dL (28.0-37.0); MCV 95.6 fL (80.0-100.0); RBC 4.22 mil/uL (4.50-6.00); RDW 17.6 % (10.5-14.5); WBC 19.7 thou/uL (4.0-11.0)
[2017-12-09 04:36] LABS: CALCIUM 6.3 mg/dL (8.5-10.1); CREATININE 2.3 mg/dL (0.7-1.3); POTASSIUM 3.6 mmol/L (3.5-5.1)
[2017-12-09 09:02] LABS: BE(vivo) -11.2 mmol/L (-2 to +3); HCO3 15.5 mmol/L (22.0-26.0); PCO2 37.7 mmHg (35.0-45.0); sO2 70.3 % (92.0-98.0)
[2017-12-09 09:03] LABS: PO2 42.9 mmHg (80.0-100.0); pH 7.232 (7.360-7.450)
[2017-12-09 11:43] LABS: BE(vivo) -9.9 mmol/L (-2 to +3); HCO3 17.3 mmol/L (22.0-26.0); PCO2 42.5 mmHg (35.0-45.0); PO2 153.7 mmHg (80.0-100.0); sO2 98.6 % (92.0-98.0)
[2017-12-09 11:44] LABS: pH 7.228 (7.360-7.450)
[2017-12-09 14:12] LABS: BE(vivo) -8.1 mmol/L (-2 to +3); HCO3 19.4 mmol/L (22.0-26.0); PCO2 46.9 mmHg (35.0-45.0); PO2 82.4 mmHg (80.0-100.0); pH 7.234 (7.360-7.450); sO2 94.2 % (92.0-98.0)
[2017-12-09 16:10] LABS: CALCIUM 6.4 mg/dL (8.5-10.1); CREATININE 2.6 mg/dL (0.7-1.3); POTASSIUM 3.9 mmol/L (3.5-5.1)
[2017-12-10] VITALS (54 sets, daily range): BP systolic 84–120; BP diastolic 49–72
[2017-12-10 04:56] LABS: CALCIUM 6.3 mg/dL (8.5-10.1); CREATININE 3.3 mg/dL (0.7-1.3); POTASSIUM 4.1 mmol/L (3.5-5.1)
[2017-12-10 05:11] LABS: BE(vivo) -9.2 mmol/L (-2 to +3); HCO3 18.3 mmol/L (22.0-26.0); PCO2 45.6 mmHg (35.0-45.0); PO2 148.3 mmHg (80.0-100.0); sO2 98.5 % (92.0-98.0)
[2017-12-10 05:12] LABS: pH 7.222 (7.360-7.450)
[2017-12-10 05:17] LABS: HEMATOCRIT 40.7 % (42.0-52.0); HEMOGLOBIN 13.1 gm/dL (14.0-18.0); MCH 30.8 pg (26.0-34.0); MCHC 32.2 g/dL (28.0-37.0); MCV 95.5 fL (80.0-100.0); RBC 4.26 mil/uL (4.50-6.00); RDW 17.6 % (10.5-14.5); WBC 19.1 thou/uL (4.0-11.0)
[2017-12-10 13:34] LABS: BE(vivo) -7.4 mmol/L (-2 to +3); HCO3 17.9 mmol/L (22.0-26.0); PCO2 35.8 mmHg (35.0-45.0); PO2 100.8 mmHg (80.0-100.0); pH 7.318 (7.360-7.450); sO2 97.2 % (92.0-98.0)
[2017-12-11] VITALS (77 sets, daily range): BP systolic 75–127; BP diastolic 41–73
[2017-12-11 05:37] LABS: BE(vivo) -6.1 mmol/L (-2 to +3); HCO3 18.6 mmol/L (22.0-26.0); PCO2 34.3 mmHg (35.0-45.0); PO2 109.8 mmHg (80.0-100.0); pH 7.352 (7.360-7.450); sO2 97.9 % (92.0-98.0)
[2017-12-11 05:41] LABS: ALBUMIN 1.6 g/dL (3.4-5.0); CALCIUM 6.9 mg/dL (8.5-10.1); CREATININE 3.5 mg/dL (0.7-1.3); PHOSPHORUS 5.9 mg/dL (2.5-4.9); POTASSIUM 3.2 mmol/L (3.5-5.1)
[2017-12-12] VITALS (90 sets, daily range): BP systolic 71–127; BP diastolic 44–78
[2017-12-12 05:09] LABS: ALBUMIN 1.6 g/dL (3.4-5.0); CALCIUM 7.8 mg/dL (8.5-10.1); CREATININE 3.2 mg/dL (0.7-1.3); PHOSPHORUS 4.9 mg/dL (2.5-4.9); POTASSIUM 3.3 mmol/L (3.5-5.1)
[2017-12-12 08:08] LABS: MAGNESIUM 1.6 mg/dL (1.8-2.4)
[2017-12-12 08:21] LABS: POTASSIUM 2.9 mmol/L (3.5-5.1)
[2017-12-12 12:26] LABS: MAGNESIUM 1.9 mg/dL (1.8-2.4)
[2017-12-12 15:01] LABS: BE(vivo) -1.7 mmol/L (-2 to +3); HCO3 21.6 mmol/L (22.0-26.0); PCO2 32.1 mmHg (35.0-45.0); PO2 101.1 mmHg (80.0-100.0); pH 7.445 (7.360-7.450); sO2 97.9 % (92.0-98.0)
[2017-12-13] VITALS (99 sets, daily range): BP systolic 74–142; BP diastolic 40–97
[2017-12-13 00:01] LABS: MAGNESIUM 1.8 mg/dL (1.8-2.4); POTASSIUM 3.1 mmol/L (3.5-5.1)
[2017-12-13 04:33] LABS: ALBUMIN 1.5 g/dL (3.4-5.0); CREATININE 2.7 mg/dL (0.7-1.3); PHOSPHORUS 3.1 mg/dL (2.5-4.9); POTASSIUM 3.4 mmol/L (3.5-5.1)
[2017-12-13 04:49] LABS: BE(vivo) -0.3 mmol/L (-2 to +3); HCO3 23.8 mmol/L (22.0-26.0); PCO2 36.9 mmHg (35.0-45.0); PO2 77.5 mmHg (80.0-100.0); pH 7.427 (7.360-7.450); sO2 95.8 % (92.0-98.0)
[2017-12-13 05:29] LABS: HEMATOCRIT 35.2 % (42.0-52.0); HEMOGLOBIN 11.9 gm/dL (14.0-18.0); MCH 31.1 pg (26.0-34.0); MCHC 33.7 g/dL (28.0-37.0); MCV 92.2 fL (80.0-100.0); RBC 3.82 mil/uL (4.50-6.00); WBC 7.7 thou/uL (4.0-11.0)
[2017-12-14] VITALS (95 sets, daily range): BP systolic 82–136; BP diastolic 47–110
[2017-12-14 03:11] LABS: HEMATOCRIT 33.3 % (42.0-52.0); MCH 30.6 pg (26.0-34.0); MCHC 32.9 g/dL (28.0-37.0); MCV 93.1 fL (80.0-100.0); RBC 3.58 mil/uL (4.50-6.00); RDW 15.9 % (10.5-14.5); WBC 6.8 thou/uL (4.0-11.0)
[2017-12-14 03:58] LABS: ALBUMIN 1.6 g/dL (3.4-5.0); CREATININE 2.2 mg/dL (0.7-1.3); MAGNESIUM 1.9 mg/dL (1.8-2.4); PHOSPHORUS 2.7 mg/dL (2.5-4.9); POTASSIUM 3.5 mmol/L (3.5-5.1)
[2017-12-14 05:02] LABS: BE(vivo) 0.9 mmol/L (-2 to +3); HCO3 23.7 mmol/L (22.0-26.0); PCO2 32.3 mmHg (35.0-45.0); PO2 109.6 mmHg (80.0-100.0); pH 7.484 (7.360-7.450); sO2 98.3 % (92.0-98.0)
[2017-12-14 12:05] LABS: BE(vivo) -3.3 mmol/L (-2 to +3); HCO3 21.1 mmol/L (22.0-26.0); PCO2 35.5 mmHg (35.0-45.0); PO2 77.6 mmHg (80.0-100.0); pH 7.391 (7.360-7.450); sO2 95.5 % (92.0-98.0)
[2017-12-14 16:00] LABS: BE(vivo) 1.5 mmol/L (-2 to +3); PCO2 40.7 mmHg (35.0-45.0); PO2 85.7 mmHg (80.0-100.0); pH 7.424 (7.360-7.450); sO2 96.7 % (92.0-98.0)
[2017-12-15] VITALS (91 sets, daily range): BP systolic 86–134; BP diastolic 44–104
[2017-12-15 05:45] LABS: HEMATOCRIT 35.2 % (42.0-52.0); HEMOGLOBIN 11.7 gm/dL (14.0-18.0); MCH 30.8 pg (26.0-34.0); MCHC 33.2 g/dL (28.0-37.0); MCV 92.7 fL (80.0-100.0); RBC 3.79 mil/uL (4.50-6.00); RDW 16.5 % (10.5-14.5); WBC 8.5 thou/uL (4.0-11.0)
[2017-12-15 05:50] LABS: ALBUMIN 1.5 g/dL (3.4-5.0); CALCIUM 8.3 mg/dL (8.5-10.1); CREATININE 1.6 mg/dL (0.7-1.3); MAGNESIUM 2.1 mg/dL (1.8-2.4); PHOSPHORUS 2.6 mg/dL (2.5-4.9); POTASSIUM 3.7 mmol/L (3.5-5.1)
[2017-12-16] VITALS (38 sets, daily range): BP systolic 82–153; BP diastolic 46–95
[2017-12-16 05:28] LABS: HEMATOCRIT 33.8 % (42.0-52.0); HEMOGLOBIN 11.2 gm/dL (14.0-18.0); MCH 30.9 pg (26.0-34.0); MCHC 33.2 g/dL (28.0-37.0); MCV 93.1 fL (80.0-100.0); RBC 3.63 mil/uL (4.50-6.00); RDW 16.3 % (10.5-14.5); WBC 7.3 thou/uL (4.0-11.0)
[2017-12-16 05:45] LABS: ALBUMIN 1.6 g/dL (3.4-5.0); CALCIUM 8.2 mg/dL (8.5-10.1); CREATININE 1.4 mg/dL (0.7-1.3); PHOSPHORUS 2.7 mg/dL (2.5-4.9); POTASSIUM 3.3 mmol/L (3.5-5.1)
[2017-12-16 20:16] LABS: MAGNESIUM 1.7 mg/dL (1.8-2.4); POTASSIUM 3.9 mmol/L (3.5-5.1)
[2017-12-17 00:12] VITALS: BP 108/60
[2017-12-17 04:43] VITALS: BP 141/66
[2017-12-17 06:12] LABS: ALBUMIN 1.8 g/dL (3.4-5.0); CALCIUM 8.1 mg/dL (8.5-10.1); CREATININE 1.4 mg/dL (0.7-1.3); PHOSPHORUS 2.5 mg/dL (2.5-4.9); POTASSIUM 3.7 mmol/L (3.5-5.1)
[2017-12-17 07:15] VITALS: BP 112/69
[2017-12-17 11:15] VITALS: BP 120/66
[2017-12-17 15:15] VITALS: BP 112/65
[2017-12-17 19:44] VITALS: BP 131/85
[2017-12-18 04:49] VITALS: BP 112/59
[2017-12-18 06:26] LABS: BASOPHILS 0.3 % (0.0-2.0); EOSINOPHILS 1.6 % (0.0-3.0); HEMOGLOBIN 10.7 gm/dL (14.0-18.0); LYMPHOCYTES 5.5 % (24.0-44.0); MCHC 33.5 g/dL (28.0-37.0); MCV 92.4 fL (80.0-100.0); MONOCYTES 6.9 % (1.0-8.0); PLATELET COUNT 161 thou/uL (150-400); POLYS 85.7 % (36.0-66.0); RBC 3.46 mil/uL (4.50-6.00); RDW 16.4 % (10.5-14.5); WBC 8.2 thou/uL (4.0-11.0)
[2017-12-18 06:40] LABS: ALBUMIN 1.7 g/dL (3.4-5.0); CALCIUM 7.8 mg/dL (8.5-10.1); CREATININE 1.3 mg/dL (0.7-1.3); POTASSIUM 3.4 mmol/L (3.5-5.1); TOTAL BILIRUBIN 0.9 mg/dL (<0.1-1.0); TOTAL PROTEIN 4.4 g/dL (6.4-8.2)
[2017-12-18 08:15] VITALS: BP 109/63
[2017-12-18 11:37] VITALS: BP 116/61
[2017-12-18 16:10] VITALS: BP 103/50
[2017-12-18 19:11] VITALS: BP 125/63
[2017-12-19 04:35] LABS: CALCIUM 7.6 mg/dL (8.5-10.1); CREATININE 1.4 mg/dL (0.7-1.3); POTASSIUM 3.5 mmol/L (3.5-5.1)
[2017-12-19 04:39] LABS: BASOPHILS 0.6 % (0.0-2.0); EOSINOPHILS 2.5 % (0.0-3.0); HEMATOCRIT 30.3 % (42.0-52.0); HEMOGLOBIN 10.2 gm/dL (14.0-18.0); LYMPHOCYTES 8.9 % (24.0-44.0); MCH 31.1 pg (26.0-34.0); MCHC 33.7 g/dL (28.0-37.0); MCV 92.4 fL (80.0-100.0); MONOCYTES 9.9 % (1.0-8.0); PLATELET COUNT 163 thou/uL (150-400); POLYS 78.1 % (36.0-66.0); RBC 3.28 mil/uL (4.50-6.00); RDW 15.5 % (10.5-14.5); WBC 6.4 thou/uL (4.0-11.0)
[2017-12-19 05:03] VITALS: BP 84/44
[2017-12-19 07:29] VITALS: BP 92/48
[2017-12-19 12:11] VITALS: BP 107/47
[2017-12-19 16:31] VITALS: BP 108/52
[2017-12-19 19:05] VITALS: BP 105/61
[2017-12-20 03:01] VITALS: BP 107/57
[2017-12-20 03:32] LABS: CALCIUM 7.6 mg/dL (8.5-10.1); CREATININE 1.3 mg/dL (0.7-1.3); POTASSIUM 3.4 mmol/L (3.5-5.1)
[2017-12-20 07:37] VITALS: BP 109/48
[2017-12-20 11:40] VITALS: BP 102/52
[2017-12-20 14:54] VITALS: BP 103/49
[2017-12-20 20:32] VITALS: BP 127/73
[2017-12-20 23:56] VITALS: BP 130/91
[2017-12-21 05:07] VITALS: BP 118/62
[2017-12-21 08:25] VITALS: BP 109/57
[2017-12-21 12:00] VITALS: BP 121/70
[2017-12-21 15:30] VITALS: BP 100/58
[2017-12-21 20:06] VITALS: BP 104/51
[2017-12-22 02:49] VITALS: BP 124/72
[2017-12-22 08:00] VITALS: BP 137/77
[2017-12-22 11:35] VITALS: BP 114/52
[2017-12-22 12:00] VITALS: BP 114/52
[2017-12-22] MEDS ORDERED: VANCOMYCIN HCL10 GM PO (14:53)
[2017-12-22] MEDS ORDERED: LIPITOR 20 MG T20 M1 PO (14:55)
[2017-12-22] MEDS ORDERED: CARVEDILOL3.125 MG PO (14:55)
[2017-12-22] MEDS ORDERED: PACERONE 200 M200 M1 PO (14:55)
[2017-12-22] MEDS ORDERED: LASIX 20 MG TAB20 MG PO (14:56)
[2017-12-22] MEDS ORDERED: KLOR-CON 10 ER10 MEQ PO (14:56)
[2017-12-22] MEDS ORDERED: XARELTO20 MG PO (14:58)
[2017-12-22] MEDS ORDERED: OXYGEN MISCELL (15:07)
[2017-12-22] MEDS ORDERED: [UNRECOGNIZED DRUG - SUPPLY] MISCELL (15:07)
[2017-12-22 16:55] VITALS: BP 120/84
[2017-12-22 19:21] VITALS: BP 143/65
[2017-12-23 03:19] VITALS: BP 114/51
[2017-12-23 07:30] VITALS: BP 155/94
[2017-12-23] MEDS ORDERED: PACERONE 200 M200 M1 PO (08:09)
== END 2017-12-23 11:20 | DRG 870 ==
LOC: ER 16:13 → EROBS 20:57 → ICU 20:57 → 4N 22:40 → ICU 12-07 05:52 → 2N 12-16 16:09
PROVIDERS: Family Medicine; Hospitalist; Internal Medicine Nephrology; Internal Medicine Pulmonary Disease; Nurse Practitioner; Nurse Practitioner Gerontology
PROC: 02HV33Z Insertion of Infusion Device into Superior Vena Cava, Percutaneous Approach (ICD-10-PCS; principal; 2017-12-06)
PROC: 0BH17EZ Insertion of Endotracheal Airway into Trachea, Via Natural or Artificial Opening (ICD-10-PCS; 2017-12-07)
PROC: 5A1955Z Respiratory Ventilation, Greater than 96 Consecutive Hours (ICD-10-PCS; 2017-12-07)
PROC: 5A09357 Assistance with Respiratory Ventilation, Less than 24 Consecutive Hours, Continuous Positive Airway Pressure (ICD-10-PCS; 2017-12-18)
PROC: 5A09357 Assistance with Respiratory Ventilation, Less than 24 Consecutive Hours, Continuous Positive Airway Pressure (ICD-10-PCS; 2017-12-20)
DX: A41.9 Sepsis, unspecified organism (principal); I49.01 Ventricular fibrillation; I46.9 Cardiac arrest, cause unspecified; J96.01 Acute respiratory failure with hypoxia; E43 Unspecified severe protein-calorie malnutrition; J69.0 Pneumonitis due to inhalation of food and vomit; I50.43 Acute on chronic combined systolic (congestive) and diastolic (congestive) heart failure; J15.0 Pneumonia due to Klebsiella pneumoniae; J15.5 Pneumonia due to Escherichia coli; G92 Toxic encephalopathy; A04.72 Enterocolitis due to Clostridium difficile, not specified as recurrent; I42.9 Cardiomyopathy, unspecified; G93.1 Anoxic brain damage, not elsewhere classified; I38 Endocarditis, valve unspecified; N17.9 Acute kidney failure, unspecified; I47.2 Ventricular tachycardia; I48.92 Unspecified atrial flutter; D68.59 Other primary thrombophilia; E87.0 Hyperosmolality and hypernatremia; I13.0 Hypertensive heart and chronic kidney disease with heart failure and stage 1 through stage 4 chronic kidney disease, or unspecified chronic kidney disease; I25.10 Atherosclerotic heart disease of native coronary artery without angina pectoris; I25.5 Ischemic cardiomyopathy; G47.33 Obstructive sleep apnea (adult) (pediatric); M19.90 Unspecified osteoarthritis, unspecified site; I34.0 Nonrheumatic mitral (valve) insufficiency; I48.2 Chronic atrial fibrillation; E86.0 Dehydration; I73.9 Peripheral vascular disease, unspecified; N40.0 Benign prostatic hyperplasia without lower urinary tract symptoms; E78.5 Hyperlipidemia, unspecified; N18.3 Chronic kidney disease, stage 3 (moderate); E87.6 Hypokalemia; E83.42 Hypomagnesemia; R73.9 Hyperglycemia, unspecified; E83.39 Other disorders of phosphorus metabolism; D64.9 Anemia, unspecified; I95.9 Hypotension, unspecified; Z95.1 Presence of aortocoronary bypass graft; Z68.27 Body mass index [BMI] 27.0-27.9, adult; Z87.891 Personal history of nicotine dependence; Z98.49 Cataract extraction status, unspecified eye; Z82.49 Family history of ischemic heart disease and other diseases of the circulatory system; Z86.718 Personal history of other venous thrombosis and embolism; Z79.01 Long term (current) use of anticoagulants; Z79.82 Long term (current) use of aspirin; Z79.899 Other long term (current) drug therapy
CPT/HCPCS: 10078; 10081; 10790; 27000